=== PATIENT | female | born 1940 | race Caucasian/White ===

== ENCOUNTER 2020-11-21 15:45 | Emergency (ER) | payer OTHER, SELFPAY ==
[2020-11-21] VITALS (20 sets, daily range): BP systolic 161–225; BP diastolic 83–128; PULSE 73–85; RESP 14–18; TEMP 36.4–36.6; O2SAT 91–100
--- NOTE | ~2020-11-21 | CT_ITS ---
EXAMINATION: CT cervical spine wo con EXAM DATE: 11/21/2020 16:56 INDICATION: Fall, neck pain. TECHNIQUE: Spiral CT of the cervical spine was performed without contrast. Axial images were reviewe d. Coronal and sagittal reformatted images cervical spine were also reviewed. The dose-length produc t (DLP) for this examination was 468.81 mGy-cm. The exposure was tailored according to patient size (auto mA exposure control), and iterative reconstruction (ASIR) was used as additional dose reduction technique. There is no prior study for comparison. FINDINGS: There is no evidence of acute cervical fracture. The odontoid process is intact. Pre-den s space is normal. Prevertebral soft tissue is normal. There are no soft tissue abnormalities ident ified. There is no disc space widening or traumatic vertebral body subluxation suspected. There is advanced cervical arthropathy, significant multilevel neural foraminal stenosis. There is moderate t o severe mid cervical disc disease. There is 2 mm degenerative anterolisthesis C7 on T1. A detailed l evel by level evaluation of spondylosis can be added as addendum if requested. IMPRESSION: 1. No acute cervical fracture. 2. Advanced cervical arthropathy. Reviewed, dictated and finalized at location G.
--- NOTE | ~2020-11-21 | XR_ITS ---
EXAMINATION: XR elbow LT 2V, XR wrist LT 2V DATE: 11/21/2020 16:51 INDICATION: Left wrist and elbow pain post injury. TECHNIQUE: 1. Anteroposterior and lateral views of the left elbow were obtained. 2. PA and lateral views of the left wrist were obtained. COMPARISON: None. FINDINGS: Left elbow: Normal alignment at the left elbow with no fracture or joint effusion. There is mild nonuniform joint space narrowing at the radiocapitellar articulation and small marginal osteophytes at the proximal u model maker apprentice consistent with mild osteoarthritis at the left elbow. Left wrist: Oblique fracture at the distal metadiaphysis of the left ulna with 2-3 mm radial displacement and 15 degrees radial angulation. There is an additional transverse fracture across the base of the ulnar st yloid process with 2-3 mm radial/distal distraction. Comminuted intra-articular fracture of the distal left radius with impaction with radial displacement and proximal migration of the fragment compressing the majority of the radial side of the articular surface, mild dorsal displacement proximal migration of a fragment compressing the dorsal aspect of t he ulnar side of the articular surface and mild volar displacement and proximal migration of a fragme nt compressing the volar aspect of the ulnar side of the articular surface. 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 Normal alignment in the carpus with polyarticular osteoarthritis, moderate severity at the triscaphe and first carpal met acarpal joints and mild at the midcarpal joint. IMPRESSION: 1. Comminuted fractures of the distal left radius and ulna as detailed above. 2. Mild osteoarthritis at the left elbow with no acute osseous abnormality or joint effusion. Reviewed, dictated and finalized at location B. IMPRESSION: 1. Comminuted fractures of the distal left radius and ulna as detailed above. 2. Mild osteoarthritis at the left elbow with no acute osseous abnormality or j oint effusion.
--- NOTE | ~2020-11-21 | XR_ITS ---
EXAMINATION: XR wrist LT 2V EXAM DATE: 11/21/2020 17:56 INDICATION: Post reduction left wrist. TECHNIQUE: Frontal and lateral projections of the left wrist. Comparison is made to prior examinatio n from earlier same date. FINDINGS: There is been some reduction in the displaced left ulnar and radial distal metaphyseal fra ctures. There is also ulnar styloid avulsion fracture with about 5 mm distraction. The radial fractur e has comminution into the joints. A splint has been applied. IMPRESSION: Casted partially reduced left radial and ulnar comminuted intra-articular fractures. Reviewed, dictated and finalized at location G. IMPRESSION: Casted partially reduced left radial and ulnar comminuted intra-art icular fractures.
--- NOTE | 2020-11-21 16:20 | ED.UPPEXIN ---
HPI - Extremity Injury (Upper) General Chief Complaint: Extremity Injury, Upper Stated Complaint: arm injury Time Seen by Provider: 11/21/20 15:58 Source: patient Mode of arrival: EMS Limitations: no limitations History of Present Illness HPI narrative: This is an 80-year-old female that presents to the emergency department after a fall today with left wrist injury. Reports she missed a step on a curb. Reports this caused her to fall forward and catch herself with her left wrist. Reports pain and swelling to the area. Patient with obvious deformity. She denies hitting her head or loss of consciousness. No other injuries. Denies prodromal symptoms, vision changes, vomiting, numbness, or weakness. Related Data Allergies Allergy/AdvReac Type Severity Reaction Status Date / Time milk AdvReac Hives Verified 11/21/20 16:00 Review of Systems Review of Systems: CONSTITUTIONAL: Denies fever EYES: Denies visual changes CARDIOVASCULAR: Denies chest pain RESPIRATORY: Denies dyspnea. GASTROINTESTINAL: Denies vomiting MUSCULOSKELETAL: Reports joint pain and myalgia. Denies back pain NEUROLOGIC: Denies headache, numbness, or weakness. All systems reviewed & are unremarkable except as noted in HPI and below PMFSH Past Medical History Medical History (Updated 11/21/20 @ 19:22 by Vanessa Lazaro PA-C) History of hypertension Social History Social History (Updated 11/21/20 @ 16:22 by Vanessa Lazaro PA-C) Smoking status: Never smoker Exam Narrative: GENERAL: Elderly, well-nourished, and in no acute distress. HEAD: Normocephalic, atraumatic. EYES: PERRLA and EOMI. ENT: Nares clear, no rhinorrhea or epistaxis. Mucous membranes moist. Oropharynx without tonsillar hypertrophy exudate or other lesions. Bilateral TMs pearly willson non-bulging NECK: Supple. No adenopathy or masses. Tender to palpation of midline cervical spine CHEST: Clear to auscultation. No respiratory distress. No wheezes rales or rhonchi HEART: Regular rate and rhythm. No murmur heard. Normal peripheral pulses. ABDOMEN: Soft, nontender, nondistended, normal active bowel sounds. BACK: No midline thoracic or lumbar spine tenderness EXTREMITIES: Normal range of motion, except decreased ROM in the left wrist with obvious deformity. Moderate edema and bruising to the left wrist. Normal radial and DP pulses SKIN: Warm, dry, no rash. NEURO: No focal deficits. Alert and oriented x3. Cranial nerves II through XII grossly intact PSYCH: Normal mood and affect Course Consultations Consultation #1: Spoke with orthopedics correction officer supervisor, Joseph. Patient is to call in the morning to make an appointment for follow-up in clinic. Date: 11/21/20 Time: 19:00 Vital Signs Vital signs: Vital Signs Temperature 97.8 F 11/21/20 15:54 Pulse Rate 79 11/21/20 15:54 Respiratory Rate 18 11/21/20 15:54 Blood Pressure 225/110 H 11/21/20 15:54 Pulse Oximetry 100 11/21/20 15:54 Temperature 97.8 F 11/21/20 15:54 Pulse Rate 85 11/21/20 18:36 Respiratory Rate 14 11/21/20 18:36 Blood Pressure 161/92 H 11/21/20 21:24 Pulse Oximetry 98 11/21/20 18:36 Procedures Orthopedic Fracture Reduction Fracture #1: Fracture Reduction date: 11/21/20 Fracture Reduction time: 18:00 Time Out Performed: Yes Side: left Fracture Reduction Location: radius and ulna Analgesia: hematoma block and other (Fentanyl) Pre-Procedure Neuro Vascular Exam: normal Technique: direct manipulation Post Reduction X-rays Demonstrate: acceptable reduction Post-reduction neuro exam: intact Post-reduction vascular exam: intact Splint Applied: Yes Patient Tolerated Procedure: well and no complications Orthopedic Splinting/Casting Injury #1: Splinting/Casting Date: 11/21/20 Splinting/Casting Time: 18:02 Side: left Upper Extremity Injury Location: wrist Upper Extremity Immobilizer: volar spl
[2020-11-21] MEDS: MORPHINE SULFATE (*CRX) 4 MG/ML INJ IV PUSH (16:38)
[2020-11-21] MEDS: ONDANSETRON INJ 4 MG/2 ML VIAL IV PUSH (16:38)
[2020-11-21] MEDS: fentaNYL CITRATE INJ (*CRX) 100 MCG/2 ML VIAL 50 MCG IV PUSH (17:43)
[2020-11-21] MEDS: TELMISARTAN 40 MG TABLET PO (20:05)
[2020-11-21] MEDS: TETANUS,DIPHTHERIA,AC PERTUSSIS ADULT (0.5 ML) BOOSTRIX IM (20:07)
--- NOTE | 2020-11-21 20:21 | PC.NURSE ---
Attempted to call patient's friend, Brigette, number in chart is not working.
--- NOTE | 2020-11-21 20:24 | PC.NURSE ---
Message left for son to return my call.
--- NOTE | 2020-11-21 20:48 | PC.NURSE ---
patient ambulated with YOLIS Miller. pt needed assistance to ambulate, states she has lost her confidence since fall. no return call from emergency contacts.
== END 2020-11-21 22:20 | disposition home or self-care (01) ==
PROVIDERS: Emergency Provider Emergency Medicine
DX: S52.572A Other intraarticular fracture of lower end of left radius, initial encounter for closed fracture (principal); S52.612A Displaced fracture of left ulna styloid process, initial encounter for closed fracture; Z23 Encounter for immunization; I10 Essential (primary) hypertension; M19.022 Primary osteoarthritis, left elbow; W10.1XXA Fall (on)(from) sidewalk curb, initial encounter
CPT/HCPCS: 25605; 72125; 73070; 73100; 90471; 90715; 96374; 96375; 99285; A9270; J0131; J2270; J2405; J3010; L0140

== ENCOUNTER 2020-11-29 10:38 | Outpatient (CLI) | payer OTHER, SELFPAY ==
--- NOTE | 2020-11-29 11:28 | ECG_ITS ---
Measurements Intervals [place] Rate: 68 P: 37 [place]: 188 QRS: 27 QRSD: 99 T: 34 QT: 379 QTc: 404 Interpretive Statements SINUS RHYTHM BORDERLINE R WAVE PROGRESSION, ANTERIOR LEADS BASELINE ARTIFACT- I, II, III, AVR, AVL, AVF BORDERLINE ECG Electronically Signed On 11-29-2020 11:48:33 CDT by Nolan Swan D.O.
[2020-11-29 12:39] LABS: Anion Gap 5 mmol/L (8-16); Blood Urea Nitrogen 12 mg/dL (7-17); Carbon Dioxide 30 mmol/L (22-30); Chloride 101 mmol/L (98-107); Estimated Glomerular Filt Rate > 60; Glucose 112 mg/dL (65-110); Potassium 3.8 mmol/L (3.4-5.0); Sodium 136 mmol/L (137-145)
== END 2020-11-29 10:39 | disposition home or self-care (01) ==
LOC: ANHSURGERY 10:43
PROVIDERS: Anesthesiology; PCP Physician Assistant; Visit Provider Orthopaedic Surgery
DX: I10 Essential (primary) hypertension (principal); S62.102A Fracture of unspecified carpal bone, left wrist, initial encounter for closed fracture; Z51.81 Encounter for therapeutic drug level monitoring; Z79.899 Other long term (current) drug therapy
CPT/HCPCS: 36415; 80048; 93005

== ENCOUNTER 2020-12-02 02:53 | Day surgery (SDC) | payer OTHER, SELFPAY ==
[2020-11-29 11:12] VITALS: BP 152/76; PULSE 72; RESP 20; TEMP 37; O2SAT 97; BMI 29.6
[2020-12-02] VITALS (10 sets, daily range): BP systolic 142–189; BP diastolic 60–70; PULSE 82–104; RESP 14–20; TEMP 36.9–37.2; O2SAT 97–100
--- NOTE | ~2020-12-02 | XR_ITS ---
EXAMINATION: XR surgery orthopedic DATE: 12/02/2020 12:38 INDICATION: ORIF left wrist fracture TECHNIQUE: 4 fluoroscopic spot images of the left wrist were obtained during procedure performed by Velia Monroy. Radiologist was not present for the imaging or procedure. The amount of fluoroscopy time used during this procedure was 0.4 minutes. COMPARISON: None. FINDINGS: Interval open reduction and internal fixation of a comminuted intra-articular fracture of the distal left radius with a volar T plate and screws. There is approximately one half and 2 mm residual incong ruity at the articular surface near the junction of the scaphoid and lunate fossae. 2-3 mm dorsal/rad ial residual displacement and oblique metadiaphyseal fracture of the distal left ulna which remains u nfixed. Minimal displacement of an additional unfixed fracture across the base of the ulnar styloid p rocess. Expected small amount of postoperative gas at the wrist joint and soft tissues surrounding th e distal radius. Mild to moderate osteoarthritis at the triscaphe and first carpal metacarpal joints. IMPRESSION: 1. Fluoroscopy utilized during internal fixation of a comminuted intra-articular fracture of the dist al left radius. See procedure note for further detail. 2. Additional unfixed fractures of the distal left ulna which remain in near anatomic alignment. Reviewed, dictated and finalized at location A. IMPRESSION: 1. Fluoroscopy utilized during internal fixation of a comminuted intra-articula r fracture of the distal left radius. See procedure note for further detail. 2. Additional unfixed fractures of the distal left ulna which remain in near an atomic alignment.
--- NOTE | 2020-12-02 07:09 | WPDHPUPDATE1 ---
History and Physical Update Update Date/Time: 12/02/20 07:09 History and Physical has been reviewed, including an updated exam of the patient. There are NO changes in the patient's condition. Risks, benefits, and alternatives have been discussed and questions answered. Patient agrees to proceed with procedure.
[2020-12-02] MEDS: ACETAMINOPHEN 500 MG TABLET 1000 MG PO (09:28)
--- NOTE | 2020-12-02 10:16 | SUR.PREOP ---
pt informed delay in procedure.
[2020-12-02] MEDS: LACTATED RINGERS 1,000 ML 30 ML IV CONT ×2 (10:30→12:49)
[2020-12-02] MEDS: KETOROLAC 15 MG/ML VIAL (*BKC) IV PUSH (10:32)
--- NOTE | 2020-12-02 10:52 | WPDANESEPPF ---
Anes - Initial Pre Proc Eval Procedure: Operation Date: 12/02/20 11:00 Proposed Procedures p Open Reduction Internal Fixation Left Wrist - Jayesh Monroy MD Date/Time: 12/02/20 10:52 Surgeon: Jayesh Monroy MD Pre Op Diagnosis: left wrist fx Patient Data Age: 80 Gender: F Height: 1.6 m Weight: 74.8 kg Last Vital Signs Temp 37.2 C 12/02/20 09:06 Pulse 90 12/02/20 09:06 Resp 16 12/02/20 09:06 BP 189/70 H 12/02/20 09:06 Pulse Ox 99 12/02/20 09:06 Allergies Allergy/AdvReac Type Severity Reaction Status Date / Time milk AdvReac Mild Nausea Verified 12/02/20 08:58 Penicillins AdvReac Mild Agitated Verified 12/02/20 08:58 Home Medications Medication Instructions Recorded Confirmed Type hydrocodone-acetaminophen 1 tablet PO Q8H PRN #14 tablet 11/21/20 12/02/20 Rx chlorthalidone 25 mg DAILY 11/29/20 12/02/20 History duloxetine 30 mg PO QAM 11/29/20 12/02/20 History telmisartan 80 mg DAILY 11/29/20 12/02/20 History zolpidem 10 mg HS 11/29/20 12/02/20 History vitamin L29-qnvam acid 1 tablet PO DAILY 12/02/20 12/02/20 History Patient hx anesthesia problems: none Family hx anesthesia problems: none Results Review: All pre-operative results and documents have been reviewed as part of the pre-operative evaluation. [facility] Past Medical History Medical History (Updated 12/02/20 @ 10:53 by Vikas Kurtz MD) Asthma Depression History of hypertension Overweight Surgical History Surgical History (Updated 12/02/20 @ 10:53 by Vikas Kurtz MD) H/O: hysterectomy Social History Social History Smoking status: Never smoker Alcohol intake: never Substance use: never Substance use type: does not use Living arrangements: alone Spiritual care concerns: No Anes - Eval Final PreProcedure Day of Procedure 12/02/20 10:52 Patient weight: overweight Heart: regular rate and rhythm Lungs: clear to auscultation Airway: Mallampati scale class II Neurological: alert and oriented ASA classification: III Emergent: no Anesthetic plan: proceed Anesthesia type and monitoring: general LMA and standard monitoring Results Review: All pre-operative results and documents have been reviewed as part of the pre-operative evaluation. Informed Consent: The patient's anesthetic plan and its attendant risks and benefits were discussed with the patient/family/POA. Questions were solicited and answers provided to the satisfaction of the patient/family/POA.
[2020-12-02] MEDS: ceFAZolin 2 GM/D5W 50 ML 2 GM/50 ML BAG IVPB (11:23)
--- NOTE | 2020-12-02 11:25 | P.OP_ITS ---
Procedure Note - Detailed Date of Procedure 12/02/20 Pre-op Diagnosis left wrist fx Post-op Diagnosis same Procedure Performed ORIF left wrist fracture Surgeon Jayesh Monroy MD Insurance And Benefits Clerk 1st pest controller assistant Anesthesia general Implants Biomet DVR plate with locking srews Estimated Blood Loss 10 Tourniquet Time 60 Drains No Packing No Pathology none sent Complications None Condition stable Disposition PACU
[2020-12-02] MEDS: BUPIVACAINE HCL 0.5% PF 30 ML VIAL INFILTRATE (11:58)
--- NOTE | 2020-12-02 13:06 | W.PM.PROC2 ---
Procedure Note - Detailed Date of Procedure 12/02/20 Pre-op Diagnosis left wrist fx Post-op Diagnosis same Procedure Performed Open reduction internal fixation left distal radius fracture, greater than 3 fragments Surgeon Jayesh Monroy MD Machine Ironer assistant general manager Anesthesia general Indications 80-year-old woman fall on left outstretched hand. Distal radius and ulna fracture. Desires operative treatment. Description of Procedure What was done: After informed consent the operative extremity was marked in the preoperative holding area. Patient received intravenous antibiotics. Patient taken to the operating room where they underwent general anesthesia. Positioned supine on operating table. Time-out performed confirming the patient, patient's site of surgery and the plan. Left upper extremity prepped and draped in the usual sterile surgical fashion using a ChloraPrep skin solution. Hand and wrist exsanguinated and arm tourniquet inflated to 225 mmHg. Standard volar flexor carpi radialis incision utilized. Fifteen blade knife used to make longitudinal incision. Flexor carpi radialis tendon identified tendon sheath incised in line with skin incision. Tendon retracted to protect the neurovascular elements. Floor of the tendon sheath incised with a 15 blade knife. Flexor pollicis retracted medial. pronator quadratus then divided off the watershed line and reflected ulnarward to expose the distal radius and the fracture. Fracture was then reduced and provisionally pinned. Comminution of the distal radius noted. Four large fragments identified. Image intensification confirm reduction. Loss of bone in the central metaphyseal region replaced with cancellous chips allograft bone. Fixation achieved with the distal radius volar plate. This was provisionally pinned into place and confirmed with image intensification. Fixation to the proximal fragment with a 3.5 mm screw. Distal fracture fixation achieved with 2.0 mm locking pegs and 2.0 mm fully threaded locking screws for the radial styloid. Fixation was then completed proximally with the remaining 3.5 mm screws. Final reduction of the fracture, alignment of the wrist joint and placement of the hardware verified with image intensification. Wound thoroughly irrigated with antibiotic solution. Pronator repaired with 3 0 Monocryl interrupted suture. Skin closed with interrupted subcutaneous 000 Monocryl interrupted suture and running 000 Monocryl subcuticular stitch. Four 0 nylon running suture for the skin. Local anesthetic with 0.5% Marcaine. Sterile dressing applied. Padded dressing and splint then applied. Tourniquet released and good capillary refill noted in the fingers and thumb. Patient awoke from anesthesia, extubated and taken to the recovery room in stable condition. All sponge and instrument counts correct at the end of case. Implants Biomet distal radius volar locking plate with 2.0 mm locking pegs and 3.5 mm cortical screws. Estimated Blood Loss 10 Tourniquet Time 60 Drains No Packing No Pathology none sent Complications None Condition stable Disposition PACU
[2020-12-02] MEDS: fentaNYL CITRATE INJ (*CRX) 100 MCG/2 ML VIAL 25 MCG IV PUSH (13:47)
[2020-12-02] MEDS: oxyCODONE HCL (*CRX) 2.5 MG TAB IR PO (14:15)
== END 2020-12-02 15:36 | disposition home or self-care (01) ==
PROVIDERS: PCP Physician Assistant; Visit Provider Orthopaedic Surgery
PROC: (CPT 25575; principal; 2020-12-02 11:00)
DX: S52.572A Other intraarticular fracture of lower end of left radius, initial encounter for closed fracture (principal); J45.909 Unspecified asthma, uncomplicated; F32.9 Major depressive disorder, single episode, unspecified; W18.39XA Other fall on same level, initial encounter
CPT/HCPCS: 25609; 36415; 80048; 93005; A9270; C1713; J0690; J1100; J1170; J1885; J2405; J2704; J3010; J7120

== ENCOUNTER → 2022-04-06 11:20 | Outpatient (CLI) | payer MEDICARE, SELFPAY ==
--- NOTE | ~2022-04-06 | XR_ITS ---
Right Knee Technique: AP, lateral, and oblique views were obtained. Clinical History: Pain Findings: No fracture or dislocation is seen. There is severe degenerative change of the medial whitney rtment, with osteophyte formation and medial compartment narrowing. There is moderate osteophyte form ation at the lateral joint line and of the patellofemoral compartment. Small joint effusion is seen. Impression: Advanced degenerative changes medial compartment, as detailed above. Moderate degenerative change of the lateral and patellofemoral compartments, as detailed above. Small joint effusion. Reviewed, dictated and finalized at location M. 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 Moderate degenerative change of the lateral and patellofemoral compartments, as detailed above. Small joint effusion.
== END ==
PROVIDERS: PCP Physician Assistant; Visit Provider Physician Assistant
DX: M25.561 Pain in right knee (principal); M25.461 Effusion, right knee; R93.6 Abnormal findings on diagnostic imaging of limbs
CPT/HCPCS: 73562